=== PATIENT | male | born 1990 ===

== ENCOUNTER 2021-04-18 04:54 | Emergency (ER) | payer OTHER ==
[2021-04-18 05:07] VITALS: BP 119/80; PULSE 86; RESP 18; TEMP 97.2
--- NOTE | 2021-04-18 05:10 | ED ---
Male Urogenital HPI - General Chief complaint: Urogenital Stated complaint: Bleeding Time Seen by Provider: 04/18/21 05:09 Source: patient, RN notes reviewed, old records reviewed Mode of arrival: ambulatory Limitations: no limitations - History of Present Illness Initial comments: This is a 30-year-old male to the emergency room today. Patient is safe for evaluation . Patient's complaint appears to be blood in both prior and urine. Difficulty with urination pain with urination. Patient does admit to having sex with multiple 11. No pain no nausea vomiting no other complaints MD Complaint: dysuria, other (Blood in his urine or sperm) -: days(s) Radiation: none Severity: moderate Severity scale (1-10): 5 Quality: burning, sharp Consistency: constant Improves with: none Worsens with: urination, sexual intercourse new sexual partner Reports: discharge, blood in urine, dysuria - Related Data Allergies Allergy/AdvReac Type Severity Reaction Status Date / Time No Known Allergies Allergy Verified 04/18/21 05:08 Review of Systems ROS Statement: Those systems with pertinent positive or pertinent negative responses have been documented in the HPI. ROS Other: All systems not noted in ROS Statement are negative. Past Medical History Past Medical History: Asthma History of Any Multi-Drug Resistant Organisms: None Reported Past Psychological History: No Psychological Hx Reported Smoking Status: Vaper Past Alcohol Use History: Daily Past Drug Use History: None Reported General Exam General appearance: alert, in no apparent distress Head exam: Present: atraumatic, normocephalic, normal inspection Eye exam: Present: normal appearance, PERRL, EOMI. Absent: scleral icterus, conjunctival injection, periorbital swelling ENT exam: Present: normal exam, mucous membranes moist Neck exam: Present: normal inspection. Absent: tenderness, meningismus, lymphadenopathy Respiratory exam: Present: normal lung sounds bilaterally. Absent: respiratory distress, wheezes, rales, rhonchi, stridor Cardiovascular Exam: Present: regular rate, normal rhythm, normal heart sounds. Absent: systolic murmur, diastolic murmur, rubs, gallop, clicks GI/Abdominal exam: Present: soft, normal bowel sounds. Absent: distended, tenderness, guarding, rebound, rigid Extremities exam: Present: normal inspection, full ROM, normal capillary refill. Absent: tenderness, pedal edema, joint swelling, calf tenderness Back exam: Present: normal inspection Neurological exam: Present: alert, oriented X3, CN II-XII intact Psychiatric exam: Present: normal affect, normal mood Skin exam: Present: warm, dry, intact, normal color. Absent: rash Course Vital Signs 04/18/21 05:01 Temperature 97.2 F L Pulse Rate 86 Respiratory 18 Rate Blood Pressure 119/80 O2 Sat by Pulse 96 Oximetry - Reevaluation(s) Reevaluation #1: 04/18/21 06:41 Medical record is reviewed Reevaluation #2: 04/18/21 06:41 Patient is informed of results and questions are answered Medical Decision Making - Medical Decision Making 30 male to the emergency department for evaluation of dysuria blood in the urine. Patient found of acute infection, patient will be given antibiotics and discharged from awaiting cultures - Lab Data Lab Results 04/18/21 Range/Units 05:48 Urine Color Yellow Urine Appearance Cloudy (Clear) Urine pH 5.5 (5.0-8.0) Ur Specific [place] 1.014 (1.001-1.035) Urine Protein Trace H (Negative) Urine Glucose (UA) 1+ H (Negative) Urine Ketones Negative (Negative) Urine Blood Moderate H (Negative) Urine Nitrite Negative (Negative) Urine Bilirubin Negative (Negative) Urine Urobilinogen <2.0 (<2.0) mg/dL Ur Leukocyte Esterase Large H (Negative) Urine RBC 23 H (0-5) /hpf Urine WBC >182 H (0-5) /hpf Urine WBC Clumps Many H (None) /hpf Ur Squamous Epith Cells <1 (0-4) /hpf Urine Bacteria Rare H (None) /hpf Urine Mucus Rare H (None) /hpf Disposition Clinical Impression: Urethritis, Hematospermia Disposition: HOME SELF-CARE Condition: Good Instructions (If sedation given, give patient instructions): Nonspecific Urethritis in Men (ED), Urinary Tract Infection in Men (ED) Is patient prescribed a controlled substance at d/c from ED?: No Referrals: None,Stated [Primary Care Provider] - 1-2 days
[2021-04-18 06:11] LABS: Appearance,Urine Cloudy (Clear); Bacteria,Urine Rare /hpf; Bilirubin,Urine Negative (Negative); Blood,Urine Moderate (Negative); Color,Urine Yellow; Glucose,Urine (UA) 1+ (Negative); Ketones,Urine Negative (Negative); Leukocyte Esterase,Urine Large (Negative); Mucus,Urine Rare /hpf; Nitrite,Urine Negative (Negative); PH, Urine 5.5 (5.0-8.0); Protein,Urine Trace (Negative); RBC,Urine 23 /hpf (0-5); Specific Gravity,Urine 1.014 (1.001-1.035); Squamous Epithelial Cell,Urine <1 /hpf (0-4); Urobilinogen,Urine <2.0 mg/dL (<2.0); WBC,Urine >182 /hpf (0-5)
[2021-04-18] MEDS ORDERED: cefTRIAXone 250 MG VIAL IM STA (06:24)
[2021-04-18] MEDS ORDERED: AZITHROMYCIN 500 MG TAB PO STA (06:24)
[2021-04-18] MEDS ORDERED: DOXYCYCLINE 100 MG CAP PO STA (06:25)
[2021-04-19 14:44] LABS: C. trachomatis,PCR Negative (Neg,Equiv); Chlamydia trachomatis Source Urine; N. gonorrhoeae,PCR Positive (Neg,Equiv); Neisseria Source Urine
== END 2021-04-18 07:00 | disposition home or self-care (01) ==
LOC: EC 04:54
DX: N34.2 Other urethritis (principal); R36.1 Hematospermia; F17.290 Nicotine dependence, other tobacco product, uncomplicated
CPT/HCPCS: 81001; 87491; 87591; 87086; 99283; 96372; J0696